=== PATIENT | female | born 1950 | race Caucasian/White ===

== ENCOUNTER → 2021-01-12 13:52 | Outpatient (CLI) | payer MEDICARE, SELFPAY ==
[2021-01-12 14:10] VITALS: BP 154/78; PULSE 86; RESP 16; TEMP 36.6; O2SAT 98
[2021-01-12] MEDS: DENOSUMAB 60 MG/ML SC (14:27)
== END ==
PROVIDERS: PCP Internal Medicine; Referring Provider Internal Medicine; Visit Provider Internal Medicine
DX: M81.8 Other osteoporosis without current pathological fracture (principal)
CPT/HCPCS: 96372; J0897

== ENCOUNTER 2021-07-13 10:09 | Outpatient (CLI) | payer MEDICARE, SELFPAY ==
[2021-07-13 10:47] VITALS: BP 124/61; PULSE 82; RESP 16; TEMP 36.4; O2SAT 95; BMI 30.2
[2021-07-13] MEDS: DENOSUMAB 60 MG/ML SC (11:01)
== END 2021-07-13 23:59 | disposition home or self-care (01) ==
PROVIDERS: PCP Internal Medicine; Referring Provider Internal Medicine; Visit Provider Internal Medicine
DX: M81.8 Other osteoporosis without current pathological fracture (principal)
CPT/HCPCS: 96372; J0897

== ENCOUNTER → 2021-12-12 | Outpatient (CLI) | payer MEDICARE, SELFPAY ==
--- NOTE | 2021-12-12 14:20 | RAD_ITS ---
STUDY: X-RAY - PELVIS AND BILATERAL HIP REASON FOR EXAM: Female, 71 years old. BILAT HIP PAIN TECHNIQUE: XR Hips Bilateral with Pelvis when performed; 2 Views COMPARISON: None. FINDINGS: There is a non-specific bowel gas pattern. Normal visualized soft tissue structures. There are multiple calcified phleboliths. There are degenerative changes of the lumbar spine. Degenerative findings of the hips. Normal bilateral iliac wings, sacroiliac joints and visualized sacrum. Normal bilateral superior and inferior pubic rami. Normal pubic symphysis. Normal bilateral ischial tuberosities. Normal visualized femoral head. Normal acetabulum. Normal hip joint. RAD/Hips B/L min 2 views w/ Pelvis IMPRESSION: Degenerative findings of the hips. Electronically Signed: Iorn Parra MD at 18:41 EDT ,
== END | disposition home or self-care (01) ==
PROVIDERS: PCP Internal Medicine; Referring Provider Internal Medicine; Visit Provider Internal Medicine
DX: M25.551 Pain in right hip (principal); M25.552 Pain in left hip
CPT/HCPCS: 73521

== ENCOUNTER → 2022-01-12 | Outpatient (CLI) | payer MEDICARE, SELFPAY ==
[2022-01-12 14:05] VITALS: BP 125/70; PULSE 90; RESP 16; TEMP 36.2; O2SAT 95; BMI 37.8
[2022-01-12] MEDS: DENOSUMAB 60 MG/ML SC (14:10)
== END | disposition home or self-care (01) ==
PROVIDERS: PCP Internal Medicine; Referring Provider Internal Medicine; Visit Provider Internal Medicine
DX: M81.8 Other osteoporosis without current pathological fracture (principal)
CPT/HCPCS: 96372; J0897

== ENCOUNTER → 2022-01-17 | Outpatient (CLI) | payer MEDICARE, SELFPAY ==
--- NOTE | 2022-01-17 15:06 | BD_ITS ---
STUDY: DUAL ENERGY X-RAY ABSORPTIOMETRY / DXA REASON FOR EXAM: Female, 71 years old. - TECHNIQUE: Bone Mineral Density (BMD) measurements of lumbar spine and bilateral hips were obtained. COMPARISON: None. FINDINGS: Lumbar Spine (L1-L4): g/cm2 (0.911) / T-score (-1.1) / Z-score (0.9) Findings are suggestive of osteopenia with a moderate fracture risk. Left Femur Total: g/cm2 (0.773) / T-score (-1.4) / Z-score (0.1) Left Femoral Neck: g/cm2 (0.675) / T-score (-1.6) / Z-score (0.2) Right Femur Total: g/cm2 (0.747) / T-score (-1.6) / Z-score (-0.1) Right Femoral Neck: g/cm2 (0.644) / T-score (-1.9) / Z-score (-0.1) BD/Dexa Bone Density Study IMPRESSION: The patient is considered osteopenic as outlined below according to World [employer] Organization (WHO) criteria with a moderate fracture risk. Reference Information: The T-score is the number of standard deviations above or below the standard which is normal for young adults at their peak bone mineral density. The World Health Organization (WHO) interprets the T-scores as follows: Above -1 Normal bone density Between -1 and -2.5 Osteopenia Equal to / or below -2.5 Osteoporosis As a practical clinical guideline, osteopenia may be graded as follows: Mild -1 through -1.5 Moderate -1.6 through -2.0 Severe -2.1 through -2.4 The Z-score is the number of standard deviations above or below age-matched controls. A Z-score of less than -1.5 would be considered abnormal. References: 1. NIH Osteoporosis and Related Bone Diseases www osteo.org 2. International Society for Clinical Densitometry www iscd.org 3. National Osteoporosis Foundation www nof.org Electronically Signed: Rashard Arechiga MD at 8:14 EDT ,
== END | disposition home or self-care (01) ==
PROVIDERS: PCP Internal Medicine; Visit Provider Internal Medicine
DX: Z78.0 Asymptomatic menopausal state (principal)
CPT/HCPCS: 77080

== ENCOUNTER → 2022-05-11 | Outpatient (CLI) | payer MEDICARE, SELFPAY ==
--- NOTE | 2022-05-11 10:33 | VDLE_ITS ---
Reason For Study: edema RIGHT LEFT GSV is normal. GSV is normal. CFV is compressible, spontaneous, phasic, CFV is compressible, spontaneous, phasic, competent and demonstrates normal competent, and demonstrates normal augmentation. augmentation. FV is compressible, spontaneous, phasic, FV is compressible, spontaneous, phasic, competent and demonstrates normal competent and demonstrates normal augmentation. augmentation. POP V is compressible, spontaneous, phasic, POP V is compressible, spontaneous, phasic, competent and demonstrates normal competent and demonstrates normal augmentation. augmentation. T/P Trunk is compressible. T/P Trunk is compressible. PTV is compressible. PTV is compressible. RT PerV is compressible. LT PerV is compressible. Procedure This is a venous duplex using B-mode, color flow and spectral Doppler. Exam performed in department. The exam was diagnostic. A preliminary report was called and/or faxed to Dr. Foster. VL/Venous Duplex US - Mauro Extrem Interpretation Summary No evidence for acute deep venous thrombosis bilateral lower extremities with p atent and compressible bilateral great saphenous veins. Ordering Physician: Felicity Foster Performed By: Jose Rogers RVT
== END | disposition home or self-care (01) ==
PROVIDERS: PCP Internal Medicine; Visit Provider Internal Medicine
DX: M79.661 Pain in right lower leg (principal)
CPT/HCPCS: 93970

== ENCOUNTER 2023-01-19 09:15 | Outpatient (CLI) | payer MEDICARE, SELFPAY ==
[2023-01-19 09:28] VITALS: BP 158/85; PULSE 92; RESP 18; TEMP 36.3; O2SAT 92; BMI 39.8
[2023-01-19] MEDS: DENOSUMAB 60 MG/ML SC (09:30)
== END 2023-01-19 09:16 | disposition home or self-care (01) ==
PROVIDERS: PCP Internal Medicine; Referring Provider Internal Medicine; Visit Provider Internal Medicine
DX: M81.8 Other osteoporosis without current pathological fracture (principal)
CPT/HCPCS: 96372; J0897

== ENCOUNTER 2023-08-10 10:23 | Outpatient (CLI) | payer MEDICARE, SELFPAY ==
[2023-08-10 10:42] VITALS: BP 148/74; PULSE 86; RESP 16; TEMP 35.9; O2SAT 93; BMI 40.6
[2023-08-10] MEDS: DENOSUMAB 60 MG/ML SC (10:45)
== END 2023-08-10 10:24 | disposition home or self-care (01) ==
PROVIDERS: PCP Internal Medicine; Referring Provider Internal Medicine; Visit Provider Internal Medicine
DX: M81.8 Other osteoporosis without current pathological fracture (principal)
CPT/HCPCS: 96372; J0897

== ENCOUNTER 2024-02-13 09:56 | Outpatient (CLI) | payer MEDICARE, SELFPAY ==
[2024-02-13] MEDS: DENOSUMAB 60 MG/ML SC (10:04)
[2024-02-13 10:07] VITALS: BP 135/78; PULSE 102; RESP 18; TEMP 36.4; O2SAT 94
== END 2024-02-13 23:59 | disposition home or self-care (01) ==
LOC: MEDOUTP 09:56
PROVIDERS: PCP Internal Medicine; Referring Provider Internal Medicine; Visit Provider Internal Medicine
DX: M81.8 Other osteoporosis without current pathological fracture (principal)
CPT/HCPCS: 96372; J0897

== ENCOUNTER 2024-08-08 10:25 | Outpatient (CLI) | payer MEDICARE, SELFPAY ==
[2024-08-08 10:43] VITALS: BP 156/69; PULSE 88; RESP 16; TEMP 35.5; O2SAT 97; BMI 33.6
[2024-08-08] MEDS: DENOSUMAB 60 MG/ML SC (10:47)
== END 2024-08-08 23:59 | disposition home or self-care (01) ==
PROVIDERS: PCP Internal Medicine; Referring Provider Internal Medicine; Visit Provider Internal Medicine
DX: M81.8 Other osteoporosis without current pathological fracture (principal)
CPT/HCPCS: 96372; J0897

== ENCOUNTER 2025-02-24 12:46 | Outpatient (CLI) | payer MEDICARE, SELFPAY ==
[2025-02-24 13:14] VITALS: BP 155/80; PULSE 93; RESP 16; TEMP 36.1; O2SAT 92; BMI 35.5
[2025-02-24] MEDS: DENOSUMAB 60 MG/ML SC (13:27)
== END 2025-02-24 23:59 | disposition home or self-care (01) ==
LOC: MEDOUTP 12:48
PROVIDERS: PCP Internal Medicine; Referring Provider Internal Medicine; Visit Provider Internal Medicine
DX: M81.8 Other osteoporosis without current pathological fracture (principal)
CPT/HCPCS: 96372; J0897